=== PATIENT | female | born 1955 | race Caucasian/White ===

== ENCOUNTER 2023-10-08 06:40 | Day surgery (SDC) | payer OTHER ==
[2023-10-04 14:25] VITALS: BMI 21.6
[2023-10-08] MEDS ORDERED: LIDOCAINE HCL/PF 2% SDV 5ML VIAL ONE (06:51)
[2023-10-08] MEDS ORDERED: PROPOFOL 160 ML ONE (06:52)
[2023-10-08 08:41] VITALS: RESP 16; TEMP 97.5
[2023-10-08 09:03] VITALS: BP 104/59; PULSE 58
== END 2023-10-08 09:20 | disposition home or self-care (01) ==
LOC: FASU-ENDO 06:40
PROVIDERS: ATTEND Internal Medicine Gastroenterology
PROC: 0DJD8ZZ Inspection of Lower Intestinal Tract, Via Natural or Artificial Opening Endoscopic (ICD-10-PCS; principal; 2023-10-08 08:05)
DX: Z12.11 Encounter for screening for malignant neoplasm of colon (principal); K64.1 Second degree hemorrhoids; K64.8 Other hemorrhoids; Z86.010 Personal history of colon polyps